=== PATIENT | female | born 1975 | race Caucasian/White ===

== ENCOUNTER 2019-12-23 20:00 | Emergency (ER) | payer SELFPAY ==
[~2019-12-23] VITALS: Ht 304.8 cm; Wt 75.3 kg
[2019-12-23 20:09] VITALS: BP 114/55
--- NOTE | 2019-12-23 20:31 | NUR ---
PT AMBULATED TO BED 6 WITH STEADY GAIT
--- NOTE | 2019-12-23 20:35 | NUR ---
44 YO F BIB SELF FROM HOME FOR 8/10 ACHING PULSATING L LOWER MOUTH PAIN THAT RADIATES TO HER LEFT THROAT. PT TOOK 500 MG OF ACETAMINOPEN AT 1500 TOFAY WITH NO RELIEF OF PAIN. PT WAS SEEN BY DENTIST 1.5 MONTHS AGO WHO TOLD HER SHE MUST BE SEEN BY A MOUTH SPECIALIST TO RECIEVE CARE FOR INFECTED MOLAR BEFORE THEY WOULD BE ABLE TO REMOVE MOLAR. PT HAS BEEN TAKING 500 MG AMOXICILLIN X1.5 MONTHS WITH NO RELIEF OF PAIN OR INFECTION. PT STATES THE INFECTION HAS SPREAD TO HER FRONT LOWER TEETH. MILD REDNESS SEEN ON FIRST INSPECTION OF L LOWER MOLAR. NO EDEMA OR BLOOD SEEN. GINGIVAL CHNAGES VISUALIZED BEHIND LOWER FRONT TEETH. DENIES TRAVEL, SOB, COUGH, FEVER. SIDE RAILS X1. MED HX: TUBAL LIGATION IN 2007 RX: ACETAMINOPHEN, AMOXICILLIN 500 MG NKA
--- NOTE | 2019-12-23 21:04 | NUR ---
ERMD AT BEDSIDE EVALUATING PT
[2019-12-23 21:14] VITALS: BP 114/55
--- NOTE | 2019-12-23 21:14 | NUR ---
Patient discharged with v/s stable. Written and verbal after care instructions given and explained. Patient alert, oriented and verbalized understanding of instructions. Ambulatory with steady gait. All questions addressed prior to discharge. ID band removed. Patient advised to follow up with PMD. Rx of NAPROSYN, NORCO given. Patient educated on indication of medication including possible reaction and side effects. Opportunity to ask questions provided and answered.
== END 2019-12-23 21:14 | disposition home or self-care (01) ==
LOC: MED 20:00
DX: K08.89 Other specified disorders of teeth and supporting structures (principal)
CPT/HCPCS: 99283

== ENCOUNTER 2020-01-11 12:22 | Emergency (ER) | payer MEDICAID ==
[~2020-01-11] VITALS: Ht 157.5 cm; Wt 68.0 kg
[2020-01-11 12:30] VITALS: BP 134/88
--- NOTE | 2020-01-11 12:49 | NUR ---
44 Y/O FEMALE FROM HOME C/O DIZZINESS AND NAUSEA S/P DENTAL INFECTION. PT STATES SHE HAD MOLAR REMOVED FROM MOUTH THAT GOT INFECTED. PT STATES SHE WAS PLACED ON CLINDAMYCIN. STATES NAUSEA ONLY WHEN SHE IS DIZZY. DENIES V/D. RR EVEN AND UNLABORED. POSITONED FOR COMFORT
--- NOTE | 2020-01-11 12:50 | NUR ---
DR CREWS EXAMINING PT
[2020-01-11 13:24] LABS: BASOPHILS % (AUTO) 0.3 % (0.0-2.0); EOSINOPHILS % (AUTO) 0.1 % (0.0-4.0); HEMATOCRIT 43.8 % (36-48); LYMPHOCYTES % (AUTO) 33.8 % (20.5-51.1); MEAN CORPUSCULAR HEMOGLOBIN 29 pg (27-31); MEAN CORPUSCULAR HGB CONC 32 g/dL (33-37); MEAN CORPUSCULAR VOLUME 89.8 fL (80-94); MONOCYTES # (AUTO) 0.8 K/uL (0.8-1.0); MONOCYTES % (AUTO) 8.6 % (1.7-9.3); NEUTROPHILS # (AUTO) 5.1 K/uL (1.8-7.7); NEUTROPHILS % (AUTO) 57.2 % (42.2-75.2); PLATELET COUNT (AUTO) 237 K/uL (140-450); RED BLOOD CELL COUNT(AUTO) 4.87 MIL/uL (4.20-5.40); RED CELL DISTRIBUTION WIDTH 15.2 % (11.6-13.7); WHITE BLOOD COUNT (AUTO) 8.9 K/uL (4.8-10.8)
[2020-01-11 13:40] LABS: ALBUMIN 3.5 g/dL (3.4-5.0); ANION GAP 12.3 (8-16); CREATININE 0.8 mg/dL (0.6-1.3); POTASSIUM 3.3 mmol/L (3.5-5.1); TOTAL BILIRUBIN 0.3 mg/dL (0.0-1.0)
--- NOTE | 2020-01-11 13:44 | NUR ---
PT SITTING UPRIGHT AWAKE AND ALERT. RR EVEN AND UNLABORED. VSS. WILL CONTINUE TO MONITOR
[2020-01-11 14:58] VITALS: BP 134/88
--- NOTE | 2020-01-11 14:59 | NUR ---
Patient discharged with v/s stable. Written and verbal after care instructions given and explained. Patient alert, oriented and verbalized understanding of instructions. Ambulatory with steady gait. All questions addressed prior to discharge. ID band removed. Patient advised to follow up with PMD. Rx of Ativan 0.5mg given. Patient educated on indication of medication including possible reaction and side effects. Opportunity to ask questions provided and answered.
== END 2020-01-11 14:59 | disposition home or self-care (01) ==
LOC: MED 12:22
DX: R42 Dizziness and giddiness (principal); E11.9 Type 2 diabetes mellitus without complications; I10 Essential (primary) hypertension
CPT/HCPCS: 36415; 70450; 80053; 81025; 82948; 85025; 99284

== ENCOUNTER 2020-01-13 15:55 | Emergency (ER) | payer MEDICAID ==
[~2020-01-13] VITALS: Ht 157.5 cm; Wt 66.7 kg
[2020-01-13 16:04] VITALS: BP_SYST 147; BP_SYST 180; BP_DIAS 103; BP_DIAS 84
--- NOTE | 2020-01-13 16:28 | NUR ---
STATES ONGOING DENTAL ISSUES PLACED ON AMOXICILLIN TYLENOL NAPROSYN IBUPROFEN S/P EXTRACTION---RECENT CHANGED TO CLIDAMYCIN, PREDNISONE, KETOROLAC C/O FATIGUED WITH PARESTHESIA TO FEET AND MOUTH X YESTERDAY DENIES WEBSTER, NO FACIAL ASYMMETRY, FULL CLEAR SPEECH, EQUAL BUE OUTSIDE PRODUCTION INSPECTOR
[2020-01-13 17:01] LABS: BASOPHILS % (AUTO) 0.4 % (0.0-2.0); EOSINOPHILS # (AUTO) 0.1 K/uL (0-0.4); EOSINOPHILS % (AUTO) 0.8 % (0.0-4.0); HEMATOCRIT 42.6 % (36-48); HEMOGLOBIN 14.1 g/dL (12.0-16.0); LYMPHOCYTES # (AUTO) 1.9 K/uL (2.5-16.5); LYMPHOCYTES % (AUTO) 21.5 % (20.5-51.1); MEAN CORPUSCULAR HEMOGLOBIN 30 pg (27-31); MEAN CORPUSCULAR HGB CONC 33 g/dL (33-37); MEAN CORPUSCULAR VOLUME 89.4 fL (80-94); MONOCYTES # (AUTO) 0.5 K/uL (0.8-1.0); MONOCYTES % (AUTO) 5.3 % (1.7-9.3); NEUTROPHILS # (AUTO) 6.4 K/uL (1.8-7.7); PLATELET COUNT (AUTO) 220 K/uL (140-450); RED BLOOD CELL COUNT(AUTO) 4.77 MIL/uL (4.20-5.40); RED CELL DISTRIBUTION WIDTH 15.2 % (11.6-13.7); WHITE BLOOD COUNT (AUTO) 8.9 K/uL (4.8-10.8)
[2020-01-13 17:03] LABS: APPEARANCE,URINE CLEAR (CLEAR); BILIRUBIN,URINE NEGATIVE (NEGATIVE); BLOOD, URINE TRACE-L (NEGATIVE); COLOR,URINE OTHER (YELLOW); LEUKOCYTE ESTERASE ,URINE NEGATIVE (NEGATIVE); NITRITE, URINE NEGATIVE (NEGATIVE); UGLUCOSE NEGATIVE (NEGATIVE)
[2020-01-13 17:13] LABS: ANION GAP 10.8 (8-16); CARBON DIOXIDE 30.9 mmol/L (21-32); CREATININE 0.9 mg/dL (0.6-1.3); POTASSIUM 3.7 mmol/L (3.5-5.1)
--- NOTE | 2020-01-13 17:58 | NUR ---
PT SITTING UP EDGE OF IDANIA--CONTINUES TO WAIT FOR DISPO DENIES PARESTHESIA FEELING AT THIS TIME.
[2020-01-13 18:20] VITALS: BP 140/77
--- NOTE | 2020-01-13 18:21 | NUR ---
Patient discharged with v/s stable. Written and verbal after care instructions given and explained. Patient verbalized understanding. Ambulatory with steady gait. All questions addressed prior to discharge. Advised to follow up with PMD.
== END 2020-01-13 18:21 | disposition home or self-care (01) ==
LOC: MED 15:55
DX: R20.2 Paresthesia of skin (principal); E11.9 Type 2 diabetes mellitus without complications; I10 Essential (primary) hypertension
CPT/HCPCS: 36415; 80048; 81003; 81025; 85025; 99283

== ENCOUNTER 2021-10-31 07:52 | Emergency (ER) | payer MEDICAID ==
[~2021-10-31] VITALS: Ht 157.5 cm; Wt 85.7 kg
[2021-10-31 07:56] VITALS: BP 159/85
--- NOTE | 2021-10-31 08:04 | NUR ---
45/F AMBULATED TO BED 3, C/O BILATERAL FLANK PAIN X3 DAYS, STATES SHE HAS DYSURIA AND HEMATURIA THIS MORNING. DENIES FEVERS, CHILLS, REPORTS TAKING TYLENOL WITH NO RELIEF. PT IN RESTROOM PROVIDING URINE SAMPLE. MEDHX: DM ALLERGIES: PENICILLINS
--- NOTE | 2021-10-31 08:15 | NUR ---
FUR DESIGNER ZORA AT BEDSIDE DRAWING BLOOD, ALSO HANDED URINE TO HER FOR COLLECTION
--- NOTE | 2021-10-31 08:16 | NUR ---
DR BUSTAMANTE AT BEDSIDE PERFORMING MSE
[2021-10-31 08:25] LABS: BASOPHILS % (AUTO) 0.5 % (0.0-2.0); EOSINOPHILS # (AUTO) 0.1 K/uL (0-0.4); EOSINOPHILS % (AUTO) 1.4 % (0.0-4.0); HEMATOCRIT 40.4 % (36-48); HEMOGLOBIN 13.2 g/dL (12.0-16.0); LYMPHOCYTES # (AUTO) 1.9 K/uL (2.5-16.5); LYMPHOCYTES % (AUTO) 27.7 % (20.5-51.1); MEAN CORPUSCULAR HEMOGLOBIN 28 pg (27-31); MEAN CORPUSCULAR HGB CONC 33 g/dL (33-37); MEAN CORPUSCULAR VOLUME 86.3 fL (80-94); MONOCYTES # (AUTO) 0.3 K/uL (0.8-1.0); MONOCYTES % (AUTO) 4.3 % (1.7-9.3); NEUTROPHILS # (AUTO) 4.5 K/uL (1.8-7.7); NEUTROPHILS % (AUTO) 66.1 % (42.2-75.2); PLATELET COUNT (AUTO) 230 K/uL (140-450); RED BLOOD CELL COUNT(AUTO) 4.68 MIL/uL (4.20-5.40); RED CELL DISTRIBUTION WIDTH 13.9 % (11.6-13.7); WHITE BLOOD COUNT (AUTO) 6.8 K/uL (4.8-10.8)
--- NOTE | 2021-10-31 08:31 | NUR ---
PT TAKEN TO CT VIA WC BY TIN FLIPPER.
[2021-10-31 08:40] LABS: ALBUMIN 3.7 g/dL (3.4-5.0); CARBON DIOXIDE 28.2 mmol/L (21-32); CREATININE 0.8 mg/dL (0.6-1.3); POTASSIUM 4.2 mmol/L (3.5-5.1); TOTAL BILIRUBIN 0.4 mg/dL (0.0-1.0)
--- NOTE | 2021-10-31 08:41 | NUR ---
PT BACK FROM CT, PT TOLERATED SCAN WELL, PT RESTING COMFORTABLE IN BED, BED LOW AND LOCKED.
[2021-10-31] MEDS ORDERED: IBUP-2213 PO ×2 (09:50→09:52)
[2021-10-31] MEDS ORDERED: TAMS0.4C96 PO ×2 (09:50→09:52)
[2021-10-31] MEDS ORDERED: ACET-8386 PO ×2 (09:50→09:52)
--- NOTE | 2021-10-31 09:55 | NUR ---
PT C/O 03/13 FLANK PAIN, DR WARD MADE AWARE, RECEIVED VERBAL ORDER FOR PAIN MED SEE MAR
[2021-10-31] MEDS ORDERED: KETOROLAC 30 MG/ML VIAL IM ONE (10:00)
[2021-10-31 10:20] VITALS: BP 150/102
--- NOTE | 2021-10-31 10:20 | NUR ---
Patient discharged with v/s stable. Written and verbal after care instructions given and explained. Patient alert, oriented and verbalized understanding of instructions. Ambulatory with steady gait. All questions addressed prior to discharge. ID band removed. Patient advised to follow up with PMD. Rx of HYDROCODON-ACETAMINOPHEN 5-325, IBUPROFEN, FLOMAX given. Patient educated on indication of medication including possible reaction and side effects. Opportunity to ask questions provided and answered.
== END 2021-10-31 10:20 | disposition home or self-care (01) ==
LOC: MED 07:52
DX: N20.0 Calculus of kidney (principal); R11.0 Nausea
CPT/HCPCS: 36415; 74176; 80053; 81002; 81025; 85025; 87086; 96372; 99284; J1885

== ENCOUNTER 2022-04-09 17:06 | Emergency (ER) | payer MEDICAID ==
[~2022-04-09] VITALS: Ht 157.5 cm; Wt 84.8 kg
[~2022-04-09 17:06] MED LIST: ACET-8386 PO; IBUP-2213 PO; TAMS0.4C96 PO
[2022-04-09 17:17] VITALS: BP 132/79
--- NOTE | 2022-04-09 17:20 | NUR ---
PT AMBULATED WITH STEADY GAIT TO [facility]
--- NOTE | 2022-04-09 18:33 | NUR ---
SEEN BY DR CEJA IN [facility]
[2022-04-09] MEDS ORDERED: ONDANSETRON 4 MG/2 ML VIAL IVP ONE ×2 (18:50→21:30)
[2022-04-09] MEDS ORDERED: MORPHINE SULFATE 2 MG/ML SYR IVP ONE ×2 (18:50→21:30)
[2022-04-09] MEDS ORDERED: NACL 0.9% 1,000 ML IV SCH (18:50)
[2022-04-09 19:42] LABS: BASOPHILS % (AUTO) 0.2 % (0.0-2.0); HEMATOCRIT 43.7 % (36-48); HEMOGLOBIN 14.3 g/dL (12.0-16.0); LYMPHOCYTES # (AUTO) 1.1 K/uL (2.5-16.5); LYMPHOCYTES % (AUTO) 11.3 % (20.5-51.1); MEAN CORPUSCULAR HEMOGLOBIN 28 pg (27-31); MEAN CORPUSCULAR HGB CONC 33 g/dL (33-37); MEAN CORPUSCULAR VOLUME 86.4 fL (80-94); MONOCYTES # (AUTO) 0.4 K/uL (0.8-1.0); MONOCYTES % (AUTO) 3.6 % (1.7-9.3); NEUTROPHILS # (AUTO) 8.5 K/uL (1.8-7.7); NEUTROPHILS % (AUTO) 84.9 % (42.2-75.2); PLATELET COUNT (AUTO) 205 K/uL (140-450); RED BLOOD CELL COUNT(AUTO) 5.06 MIL/uL (4.20-5.40); RED CELL DISTRIBUTION WIDTH 14.8 % (11.6-13.7)
[2022-04-09 19:59] LABS: ALBUMIN 3.5 g/dL (3.4-5.0); ANION GAP 14.2 (8-16); CARBON DIOXIDE 23.8 mmol/L (21-32); CREATININE 0.9 mg/dL (0.6-1.3); TOTAL BILIRUBIN 0.5 mg/dL (0.0-1.0)
--- NOTE | 2022-04-09 20:22 | NUR ---
Ultrasound at bedside.
[2022-04-09] MEDS ORDERED: metroNIDAZOLE 500 MG/NS PREMIX 100 ML IV SCH (23:20)
[2022-04-09] MEDS ORDERED: METR-435 PO (23:30)
[2022-04-09] MEDS ORDERED: CIPR500T4 PO (23:30)
[2022-04-09] MEDS ORDERED: HYDR-5080 PO (23:30)
[2022-04-10 00:11] VITALS: BP 128/75
--- NOTE | 2022-04-13 08:45 | NUR ---
LATE ENTRY- IV NORMAL SALINE DISCONTINUED AT 0013.
== END 2022-04-10 00:13 | disposition home or self-care (01) ==
LOC: MED 17:06
DX: K52.9 Noninfective gastroenteritis and colitis, unspecified (principal); I10 Essential (primary) hypertension; E11.9 Type 2 diabetes mellitus without complications; Z79.4 Long term (current) use of insulin; Z79.899 Other long term (current) drug therapy; Z88.0 Allergy status to penicillin
CPT/HCPCS: 36415; 74177; 76705; 80053; 81002; 81025; 83690; 85025; 87040; 96361; 96374; 96375; 99285; J2270; J2405; J7030; Q0092; Q9967

== ENCOUNTER 2022-12-29 18:29 | Emergency (ER) | payer OTHER, MEDICAID ==
[~2022-12-29] VITALS: Ht 152.4 cm; Wt 81.6 kg
[~2022-12-29 18:29] MED LIST changes: -ACET-8386 PO; +ACET-8905 PO; +CIPR500T4 PO; +HYDR-5080 PO; +METR-435 PO
[2022-12-29 18:47] VITALS: BP 126/80
[2022-12-29] MEDS ORDERED: IBUPROFEN 600 MG TAB PO ONE (19:20)
[2022-12-29] MEDS ORDERED: NAPR-54 PO (20:14)
[2022-12-29 20:20] VITALS: BP 126/80
== END 2022-12-29 20:20 | disposition home or self-care (01) ==
LOC: MED 18:29
DX: S39.012A Strain of muscle, fascia and tendon of lower back, initial encounter (principal); M25.512 Pain in left shoulder; E11.9 Type 2 diabetes mellitus without complications; Z79.1 Long term (current) use of non-steroidal anti-inflammatories (NSAID); Z79.891 Long term (current) use of opiate analgesic; Z79.899 Other long term (current) drug therapy; Z79.2 Long term (current) use of antibiotics; Z88.0 Allergy status to penicillin; V89.2XXA Person injured in unspecified motor-vehicle accident, traffic, initial encounter; Y93.89 Activity, other specified; Y92.410 Unspecified street and highway as the place of occurrence of the external cause; Y99.8 Other external cause status
CPT/HCPCS: 72110; 73030; 99284

== ENCOUNTER 2023-02-26 12:16 | Emergency (ER) | payer MEDICAID, OTHER ==
[~2023-02-26] VITALS: Ht 154.9 cm; Wt 82.6 kg
[~2023-02-26 12:16] MED LIST changes: +NAPR-54 PO
[2023-02-26 12:28] VITALS: BP 147/106; PULSE 78; RESP 18; TEMP 97.4; O2SAT 98
[2023-02-26] MEDS ORDERED: NAPR-1704 PO (12:58)
[2023-02-26] MEDS ORDERED: KETOROLAC 30 MG/ML VIAL IM ONE (13:00)
== END 2023-02-26 13:09 | disposition home or self-care (01) ==
LOC: MED 12:16
DX: L72.3 Sebaceous cyst (principal); E11.9 Type 2 diabetes mellitus without complications; Z88.0 Allergy status to penicillin; Z79.899 Other long term (current) drug therapy
CPT/HCPCS: 96372; 99285; J1885

== ENCOUNTER 2023-11-10 19:20 | Emergency (ER) | payer MEDICAID, OTHER ==
[~2023-11-10] VITALS: Ht 154.9 cm; Wt 81.2 kg
[~2023-11-10 19:20] MED LIST changes: +NAPR-1704 PO
[2023-11-10 20:04] VITALS: BP 156/85; PULSE 86; RESP 18; TEMP 98.2; O2SAT 97
[2023-11-10 20:58] LABS: BASOPHILS % (AUTO) 0.5 % (0.0-2.0); EOSINOPHILS # (AUTO) 0.1 K/uL (0-0.4); EOSINOPHILS % (AUTO) 1.1 % (0.0-4.0); HEMATOCRIT 41.2 % (36-48); HEMOGLOBIN 13.7 g/dL (12.0-16.0); LYMPHOCYTES # (AUTO) 2.8 K/uL (2.5-16.5); LYMPHOCYTES % (AUTO) 33.2 % (20.5-51.1); MEAN CORPUSCULAR HEMOGLOBIN 29 pg (27-31); MEAN CORPUSCULAR HGB CONC 33 g/dL (33-37); MEAN CORPUSCULAR VOLUME 87.6 fL (80-94); MONOCYTES # (AUTO) 0.5 K/uL (0.8-1.0); NEUTROPHILS % (AUTO) 59.2 % (42.2-75.2); PLATELET COUNT (AUTO) 194 K/uL (140-450); RED BLOOD CELL COUNT(AUTO) 4.71 MIL/uL (4.20-5.40); RED CELL DISTRIBUTION WIDTH 14.7 % (11.6-13.7); WHITE BLOOD COUNT (AUTO) 8.5 K/uL (4.8-10.8)
[2023-11-10 21:12] LABS: ANION GAP 11.2 (8-16); CALCIUM 9.2 mg/dL (8.5-10.1); CARBON DIOXIDE 29.5 mmol/L (21-32); CREATININE 0.8 mg/dL (0.6-1.3); POTASSIUM 3.7 mmol/L (3.5-5.1)
[2023-11-10 21:16] LABS: APPEARANCE,URINE CLEAR (CLEAR); BILIRUBIN,URINE NEGATIVE (NEGATIVE); BLOOD, URINE 2+ (NEGATIVE); COLOR,URINE YELLOW (YELLOW); LEUKOCYTE ESTERASE ,URINE NEGATIVE (NEGATIVE); NITRITE, URINE NEGATIVE (NEGATIVE); PH,URINE 7.5 (5.0-9.0); PROTEIN,URINE NEGATIVE (NEGATIVE); UGLUCOSE NEGATIVE (NEGATIVE); UROBILINOGEN,URINE 0.2 EU/dL (0.2 - 1)
[2023-11-10 21:25] LABS: ALBUMIN 3.5 g/dL (3.4-5.0); TOTAL BILIRUBIN 0.2 mg/dL (0.0-1.0)
[2023-11-10 21:33] LABS: BACTERIA,URINE FEW /HPF (None Seen); SQUAMOUS EPITHELIAL CELL,UR 4-10 (MOD) /LPF (0-3 (FEW)); WBC,URINE 0-5 /HPF (0-5)
[2023-11-10] MEDS ORDERED: METF-346 PO (21:41)
[2023-11-10 21:45] VITALS: O2SAT 97
== END 2023-11-10 21:45 | disposition home or self-care (01) ==
LOC: MED 19:20
DX: E11.65 Type 2 diabetes mellitus with hyperglycemia (principal); Z91.148 Patient's other noncompliance with medication regimen for other reason; R19.7 Diarrhea, unspecified; Z79.899 Other long term (current) drug therapy; Z88.0 Allergy status to penicillin
CPT/HCPCS: 36415; 80048; 80076; 81001; 82948; 83690; 85025; 99283